=== PATIENT | male | born 1950 | race Caucasian/White ===

== ENCOUNTER 2020-03-11 18:56 | Inpatient (IN) | payer OTHER, MEDICARE ==
--- OUTSIDE RECORDS SUMMARY | 2020-03-11 18:58 | XMS REPORT | Continuity of Care Document ---
:1950 Author Organization [facility] t Address [address] [place] [address] Care Team Providers Name Role Phone Dagmar Turner Attending Clinician Guillaume Rosario MD Attending Clinician Doctor Unassigned, Name Attending Clinician Unavailable Problems Condition Condition Condition Status Onset Resolution Last Treating Co mments Source Name Details Category Date Date Treatment Clinician Date History of History of Problem Active [facility] cerebrovas cerebrovas Kate kes - cular cular [facility] Terminal Terminal [facility] Pharyngeal Pharyngeal Problem Active [facility] dysphagia dysphagia [facility] Schizophre Schizophre Problem Active [facility] melo melo [facility] Overactive Overactive Diagnosis Active [facility] bladder bladder [facility] Hyperlipid Hyperlipid Diagnosis Active [facility] emia emia [facility] Mild Mild Problem Active [facility] mental mental [facility] retardatio retardatio Me moria n n l [facility] Pain in Pain in Problem Active [facility] thoracic thoracic [facility] Other Other Problem Active [facility] chronic chronic [facility] pain [facility] Bipolar Bipolar Problem Active [facility] affective, affective, Kate kes - mixed mixed [facility] At risk At risk Problem Active [facility] for falls for falls [facility] Screening Screening Diagnosis Active [facility] for for [facility] prostate prostate [facility] a cancer cancer l [facility]pat[facility] ent Clin[facility] BMI BMI Diagnosis Active [facility] 30.0-30.9, 30.0-30.9, Kate kes - adult adult Memoria l [facility] ent Clinics History of History of Problem Active [facility] chronic chronic [facility] - urinary urinary [facility] tract tract l infection infection Outp at ent Clinics Fever, Fever, Diagnosis Active [facility] unspecifie unspecifie Kate kes - d fever d fever Memoria cause cause l [facility] ent [facility] Allergies, Adverse Reactions, Alerts This patient has no known allergies or adverse reactions. Medications Ordered Filled Start Stop Current Ordering Indication Dosage Frequency Signature Comments Components Source Medication Medication Date Date Medication? Clinician (SIG) Name Name Perphenazin Perphenazin Yes Trupti [place] [address] [facility] [address] [facility] Cefdinir Cefdinir Yes Truptiawais Gomez as [facility] directed [facility] Fesoterodin Fesoterodin Yes [place]rupt[place] [address] e Fumarate e Fumarate [place] - ER ER [facility] l [facility]ics Benadryl Benadryl Yes Trupti [place] 12.5mg. [facility] Restasis Restasis Yes [place]rupti [place] [address] - affected [facility] eye l [facility] Plavix Plavix Yes [place]rupt[place] [address] [facility] Tamsulosin Tamsulosin Yes [place]rupt[place] [address] [facility] HCl HCl [facility] Sulfamethox Sulfamethox Yes Trupti [place] I TABLET [facility] azole-TMP azole-TMP [facility] - DS DS [facility] l [facility] Ultram Ultram Yes [place] [address] as needed [facility] Zocor Zocor Yes Trupti [place] TAKE 1 [facility] TABLET BY [facility] - MOUTH Memoria EVERY DAY l [facility] Gabapentin Gabapentin Yes [place] [address] [facility] Olopatadine Olopatadine Yes Trupti [place] [address] [facility] HCl HCl [facility] Procedures This patient has no known procedures. Encounters Start End Encounter Admission Attending Care Care Encounter Source Date/Time Date/Time Type Type Clinicians Facility Department ID 2020-03-06 2020-03-06 Emergency [facility] [id number] 10:10:00 13:53:00 [place] [id number] [place] [id number] [place] [id number] 2019-12-07 2019-12-07 Telephone [facility] [id number] 00:00:00 00:00:00 [facility] [id number] [place] [id number] Professio [phone] [place] [address] [address] [facility] 2019-11-08 2019-11-08 Telephone [facility] [id number] 00:00:00 00:00:00 [place] [id number] [place] [id number] Professio [phone] [address] 2019-11-08 2019-11-08 Orders Doctor SAPPHIRE [id number] 00:00:00 00:00:00 Only Unassigned, BARBARA [id number] [facility] [id number] 2019-10-21 2019-10-21 Orders Doctor SAPPHIRE [id number] 00:00:00 00:00:00 Only Unassigned, BARBARA [id number] [facility] [id number] 2019-10-20 2019-10-20 Telephone [facility] [id number] 00:00:00 00:00:00 [place] [id number] [place] [id number] Professio [phone] [address] 2019-10-15 2019-10-15 Telephone [facility] [id number] 00:00:00 00:00:00 [place] [id number] [place] [id number] Professio [phone] [address] 2018-06-12 2018-06-12 Outpatient [facility] [id number] [facility] [address] 13:44:00 13:44:00 [facility] 2018-06-09 2018-06-09 [place] [id number] [facility] 11:00:00 11:00:00 [facility] 2017-11-11 2017-11-11 [facility] [place] [facility] [id number] [address] 13:50:00 13:50:00 [facility] 2017-11-06 2017-11-06 Outpatient [facility]ima [facility] [id number] 10:30:00 10:30:00 [facility] Results This patient has no known results.
--- OUTSIDE RECORDS SUMMARY | 2020-03-11 18:58 | XMS REPORT | Summary of Care ---
:1950 Author Organization [facility] - [facility] Address [address] [place] [id number] Care Team Providers Name Role Phone Bogdan Rosario MD Primary Care Provider Reason for Referral MRI/CAT Scan (STAT) Status Reason Specialty Diagnoses / Referred By Referred To Procedures Contact Contact New Request Diagnostic Diagnoses Gross hematuria Generalized abdominal pain Fall, initial encounter Acute pain of left knee Adonis Roy, Radiology Procedures CT ABDOMEN PELVIS W CONTRAST GLOST PLACER [address] [place] [phone] Radiology Services (STAT) Status Reason Specialty Diagnoses / Referred By Referred To Procedures Contact Contact New Request Diagnostic Diagnoses Gross hematuria Generalized abdominal pain Fall, initial encounter Acute pain of left knee Adonis Roy, Radiology Procedures Chest 1 View GLOST PLACER [address] [place] [phone] Reason for Visit Reason Comments Hematuria Auth/Cert Status Reason Specialty Diagnoses / Referred By Referred To Procedures Contact Contact Emergency Medicine [facility] [address] [place] [address] Fax: Encounter Details Date Type Department Care Team Description 03/06/2020 Emergency [facility]-Emergency Adonis Roy , GLOST PLACER Gross hematuria (Primary Dx); Department [address] [place] [address] Generalized abdominal pain; [address] [place] [address] Fall, ini tial encounter; Drive [phone] Acute pain of left knee; [place] [address] Pneumonia of right lower lobe due to inf ectious organism [phone] Allergies No Known Allergiesdocumented as of this encounter (statuses as of 03/06/2020) Medications Medication Sig Dispensed Refills Start Date End Date Status clopidogrel (PLAVIX) 75 mg Take 75 mg by 0 Active tablet mouth daily. gabapentin ER 300 mg Take 300 mg 0 Active tablet, extended release by mouth 24 hr daily. perphenazine (TRILAFON) 4 Take 4 mg by 0 Active mg tablet mouth 3 (three) times daily. tamsulosin 0.4 mg 24 hr Take 0.4 mg 0 Active capsule by mouth daily. sulfamethoxazole-trimethop 1 tablet po 0 Active rim 800-160 mg per tablet daily (PER UROLOGY) Olopatadine 0.2 % PRN 0 Ac tive ophthalmic drops TOVIAZ 8 mg tablet Take 1 tablet 3 07/24/2018 Active by mouth daily. diphenhydrAMINE 50 mg Take 50 mg by 0 Active capsule mouth at bedtime. multivit-min/FA/lycopen/juni Take 1 tablet 0 Active tein (CENTRUM SILVER MEN by mouth ORAL) daily. BIOTENE DRY MOUTH ORAL Apply as 0 Active RINSE MUCOUS MEMBR directed. Lactobacillus acidophilus Take by 0 Active (PROBIOTIC ORAL) mouth. coenzyme Q10 (COQ-10) 100 Take 1 30 capsule 5 04/16/2019 Active mg softgelIndications: capsule by Muscle pain mouth daily. ROSUVASTATIN 5 mg TAKE 1 TABLET 90 tablet 2 06/16/2019 Active tabletIndications: BY MOUTH AT Hypercholesterolemia BEDTIME. STOP SIMVASTATIN. doxycycline 100 mg EC Take 1 tablet 14 tablet 0 03/06/2020 Active tabletIndications: by mouth 2 0 Pneumonia of right lower (two) times lobe due to infectious daily for 7 organism days. documented as of this encounter (statuses as of 03/06/2020) Active Problems Problem Noted Date Prediabetes 06/09/2019 Mental retardation 10/05/2018 History of recurrent UTIs 10/05/2018 Hyperlipidemia Hearing loss Overactive bladder documented as of this encounter (statuses as of 03/06/2020) Resolved Problems Problem Noted Date Resolved Date Abdominal pain 05/07/2019 06/09/2019 UTI (urinary tract infection) 10/29/2017 10/05/2018 documented as of this encounter (statuses as of 03/06/2020) Immunizations Name Administration Dates Next Due Pneumococcal 13 Conjugate, PCV13 (Prevnar 13) 10/19/2018 documented as of this encounter Social History Tobacco Use Types Packs/Day Years Used Date Never Smoker Smokeless Tobacco: Never Used Alcohol Use Drinks/Week oz/Week Comments Yes 14 Cans of beer 14.0 2 beers per day Sex Assigned at Date Recorded Not on file COVID-19 Exposure Response Date Recorded In the last month, have you been in contact with No / Unsure 03/06/2020 10:12 AM TOOL PROCUREMENT COORDINATOR someone who was confirmed or suspected to have Coronavirus / COVID-19? documented as of this encounter Last Filed Vital Signs Vital Sign Reading Time Taken Comments Blood Pressure 137/69 03/06/2020 1:00 PM TOOL PROCUREMENT COORDINATOR Pulse 86 03/06/2020 1:00 PM TOOL PROCUREMENT COORDINATOR Temperature 37.4 C (99.3 F) 03/06/2020 10:17 AM TOOL PROCUREMENT COORDINATOR Respiratory Rate 20 03/06/2020 1:00 PM TOOL PROCUREMENT COORDINATOR Oxygen Saturation 100% 03/06/2020 1:00 PM TOOL PROCUREMENT COORDINATOR Inhaled Oxygen Concentration - - Weight 81.6 kg (180 lb) 03/06/2020 10:17 AM TOOL PROCUREMENT COORDINATOR Height - - Body Mass Index 29.05 09/30/2019 10:49 AM CDT documented in this encounter Discharge Instructions AttachmentsThe following attachments cannot be sent through Care Everywhere. Anatomy, Lung (Wallisian)Pneumonia, Treating (Wallisian)Hematuria (Wallisian) Hematuria: Possible Causes (Wallisian)Falls, Preventing, Are You At Risk of Falling? (Wallisian)Falls, Preventing, Moving Safely Out of a Chair and Bed (Wallisian)documented in this encounter ED Notes Ann Patterson RN - 03/06/2020 10:12 AM CSTPatient arrived accompanied by sister/POA due to patient's MR status.. Patient had a slip and fall in the shower on Friday with pain to the left knee, leg, and abdomen. This morning patient is reporting burning and pain to his penis with hematuria accompanied by abdominal pain. Patient is requesting to make note that due to the fact that he is a jehovah witness he would not want a blood transfusion documented in this encounter Miscellaneous Notes ED Nurse Note - Janine Alonzo RN - 03/06/2020 1:51 PM CSTPt given printed and verbal discharge instructions regarding Hematuria, Generalized abdominal pain, Fall, Acute knee pain, Pneumonia of right lower lobe due to infectious organism. encouraged hydration, Prescriptions provided Doxycycline Discussed ibuprofen and to take with food to avoid GI distress. Discussed antibiotic therapy and to take until all completed unless adverse reaction occurs - if occurs, discontinue medication and follow up with pcp/seek medical attention Pt verbalized understanding of instructions, pt awake alert oriented, resp reg unlabored, skin w/d, color appropriate for race, moves all ext well,pt encouraged to follow up with pcp and urology in three days. Advised to seek medical attention for new/prolonged/worsening of symptoms, Symptoms increase bleeding, or any signs of infection, fever over 100.4 No adverse reaction to meds given in ER noted upon discharge PIV d'cd, dressing to site, catheter in tact. Awake, alert oriented, resp reg unlabored, skin w/d, pt leaving amb with steady gait, in no apparent distress, PROCUREMENT COORDINATOR documented in this encounter Plan of Treatment Health Maintenance Due Date Last Done Comments DTaP,Tdap,and Td Vaccines (1 - Tdap) 1967 COLON CANCER SCREENING ANNUAL FIT/FOBT 1998 COLON CANCER SCREENING FIT DNA EVERY 3 YEARS 1998 COLON CANCER SCREENING SIGMOIDOSCOPY EVERY 5 YEARS 1998 Zoster Recombinant Vaccine (SHINGRIX) (1 of 2) 1998 Medicare Wellness Visit 10/20/2019 10/19/2018 PNEUMOCOCCAL VACCINES 65+ (2 of 2 - PPSV23) 10/20/201910/05 INFLUENZA VACCINE (#1) 2019 Depression Screening 05/25/2020 05/25/2019 COLONOSCOPY 04/07/2026 04/07/2016 Colorectal Cancer Screening 04/07/2026 HEPATITIS C (HCV) SCREEN Completed 11/16/2018 documented as of this encounter Procedures Procedure Name Priority Date/Time Associated Comments Diagnosis CT ABDOMEN PELVIS W STAT 03/06/2020 11:53 Gross hemat uria Results for this CONTRAST AM TOOL PROCUREMENT COORDINATOR Generalized procedure are i n abdominal pain the results Fall, initial section. encounter Acute pain of left knee URINALYSIS STAT 03/06/2020 11:33 Gross hematuria Results for this AM TOOL PROCUREMENT COORDINATOR Generalized procedure are i n abdominal pain the results Fall, initial section. encounter Acute pain of left knee XR CHEST 1 VW STAT 03/06/2020 10:56 Gross hematuria Results for this AM TOOL PROCUREMENT COORDINATOR Generalized procedure are i n abdominal pain the results Fall, initial section. encounter Acute pain of left knee HB ECG ROUTINE & STAT 03/06/2020 10:47 Gross hematuri a RHYTHM STRIP AM TOOL PROCUREMENT COORDINATOR Generalized abdominal pain Fall, initial encounter Acute pain of left knee ACTIVATED PARTIAL STAT 03/06/2020 10:35 Gross hematur ia Results for this THRMPLAS CARMELITA AM TOOL PROCUREMENT COORDINATOR Generalized procedure are i n abdominal pain the results Fall, initial section. encounter Acute pain of left knee PROTHROMBIN TIME / STAT 03/06/2020 10:35 Gross hematu swati Results for this INR AM TOOL PROCUREMENT COORDINATOR Generalized procedure are i n abdominal pain the results Fall, initial section. encounter Acute pain of left knee CBC WITH DIFF STAT 03/06/2020 10:35 Gross hematuria Results for this AM TOOL PROCUREMENT COORDINATOR Generalized procedure are i n abdominal pain the results Fall, initial section. encounter Acute pain of left knee BASIC METABOLIC PANEL STAT 03/06/2020 10:35 Gross hem aturia Results for this (NA, K, CL, CO2, AM TOOL PROCUREMENT COORDINATOR Generalized procedure a re in GLUCOSE, BUN, abdominal pain the results CREATININE, CA) Fall, initial section. encounter Acute pain of left knee HEPATIC FUNCTION STAT 03/06/2020 10:35 Gross hematuri a Results for this PANEL (62010) AM TOOL PROCUREMENT COORDINATOR Generalized procedure are in (ALB,T.PRO,BILI abdominal pain the results T,BU/BC,ALT,AST,ALK Fall, initial section . PHOS) encounter Acute pain of left knee TROPONIN I STAT 03/06/2020 10:35 Gross hematuria Results for this AM TOOL PROCUREMENT COORDINATOR Generalized procedure are i n abdominal pain the results Fall, initial section. encounter Acute pain of left knee LIPASE STAT 03/06/2020 10:35 Gross hematuria Results for this AM TOOL PROCUREMENT COORDINATOR Generalized procedure are i n abdominal pain the results Fall, initial section. encounter Acute pain of left knee documented in this encounter Results CT ABDOMEN PELVIS W CONTRAST (03/06/2020 11:53 AM TOOL PROCUREMENT COORDINATOR) Specimen Impressions Performed At Lobulated hyperdensity within the posterior gastric fu ndus, could PACS/VR/DOSE represent active submucosal or mucosal bleeding if there is hist ory of hematemesis. Though no oral contrast was administered , differential would include ingested hyperdense material. No other acute traumatic injury within t he abdomen or pelvis. Stable mesenteric panniculitis. No fractures identified. Groundglass nodularity at the right lung base could re present atelectasis versus partially visualized pneumonia RL: 7000 Narrative Performed At Patient name: TITI LOTT JR. PACS/VR/DOSE : 1950 69 years EXAMINATION: [facility] Ordering Physician: ADONIS ROY CLINICAL HISTORY: Abd trauma, blunt, hematuria macroscopic COMPARISON: 05/07/2019 TECHNIQUE: Helical CT images of the abdomen and pel vis were performed from the lung bases to the proximal femurs using 5 mm slice thickness after the administration of IV contrast. Coronal a nd sagittal reconstruction was performed. Dose reduction technology was utilized.. FINDINGS: The liver is normal in size and morpholo gy without discrete lesions. No calcified gallstones. The spleen is norm al. No pancreatic lesions or inflammatory changes. The adrenal glands are normal. Both kidneys enhance symmetrically without discrete le sions. No stones or hydronephrosis. Urinary bladder is gross ly normal. Prostate is normal. No hiatal hernia or esophageal thickening. No discrete gastric thickening or surrounding inflammatory changes. There is hyperden sity layering along the posterior gastric fundus, not seen on prior exam. No oral contrast was administered. The large and small bowel are normal in caliber and wall thickness. The appendix is normal. No free fluid or abscess. There is stable stranding of the mesenteric root with clustered nonenlarged mesenteric ro ot lymph nodes. No adenopathy. Aorta is normal in caliber. No acute osseous abnormality. Degenerative changes of the spine and pelvis. No acute process in the subcutaneous sof t tissues. Groundglass nodularity in the subpleural right lung base. Procedure Note [facility], Radiant Results Inft User - 2019 12:53 PM TOOL PROCUREMENT COORDINATOR Patient name: TITI LOTT JR. : 1950 69 years EXAMINATION: CT ABDOMEN PELVIS W CONTRAS Ordering Physician: ADONIS ROY CLINICAL HISTORY: Abd trauma, blunt, hematuria macroscopic COMPARISON: 05/07/2019 TECHNIQUE: Helical CT images of the abdomen and pel vis were performed from the lung bases to the proximal femurs using 5 mm slice thickness after the administration of IV contrast. Coronal a nd sagittal reconstruction was performed. Dose reduction technology was utilized.. FINDINGS: The liver is normal in size and morpholo gy without discrete lesions. No calcified gallstones. The spleen is norm al. No pancreatic lesions or inflammatory changes. The adrenal glands are normal. Both kidneys enhance symmetrically witho ut discrete lesions. No stones or hydronephrosis. Urinary bladder is gross ly normal. Prostate is normal. No hiatal hernia or esophageal thickenin g. No discrete gastric thickening or surrounding inflammatory changes. The re is hyperdensity layering along the posterior gastric fundus, not seen o n prior exam. No oral contrast was administered. The large and small bowel are normal in caliber and wall thickness. The appendix is normal. No free fluid or abscess. There is stabl e stranding of the mesenteric root with clustered nonenlarged mesenteric ro ot lymph nodes. No adenopathy. Aorta is normal in caliber. No acute osseous abnormality. Degenerati ve changes of the spine and pelvis. No acute process in the subcutaneous sof t tissues. Groundglass nodularity in the subpleural right lung base. IMPRESSION Lobulated hyperdensity within the recreation officer ior gastric fundus, could represent active submucosal or mucosal bleeding if there is history of hematemesis. Though no oral contrast was administered , differential would include ingested hyperdense material. No other acute traumatic injury within t he abdomen or pelvis. Stable mesenteric panniculitis. No fractures identified. Groundglass nodularity at the right lung base could represent atelectasis versus partially visualized pneumonia RL: 7000 Performing Organization Address City/State/Zipcode Phone Number PACS/VR/DOSE Urinalysis (03/06/2020 11:33 AM TOOL PROCUREMENT COORDINATOR) Pathologist Sig nature APPEARANCE Hazy (A) Clear [facility] COLOR Yellow Yellow [facility] PH 6.0 4.8 - 8.0 [facility] SP GRAVITY 1.017 1.003 - 1.030 [facility] GLU U QUAL 50 mg/dL (A) Normal [facility] BLOOD 3+ (A) Negative [facility] KETONES Negative Negative [facility] PROTEIN Negative Negative [facility] UROBILIN 2.0 mg/dL (A) Normal [facility] BILIRUBIN Negative Negative [facility] NITRITE Negative Negative [facility] LEUK ELENI Negative Negative [facility] RBC/HPF >182 (H) 0 - 3 HPF [facility] WBC/HPF 4 0 - 5 HPF [facility] BACTERIA Negative Negative [facility] MUCOUS Slight (A) Negative LPF [facility] AMORPHOUS Rare Rare HPF [facility] SQ EPITH <1 HPF [facility] Specimen Urine - URINE, CLEAN CATCH Performing Organization Address City/[facility]/Zipcode Phone Number [facility] CLIA: [id number] [place] [address] Chest 1 View (03/06/2020 10:56 AM TOOL PROCUREMENT COORDINATOR) Specimen Narrative Performed At CHEST PORTABLE ONE VIEW PACS/VR/DOSE HISTORY:Fall TECHNIQUE: Frontal, portable projection of the chest is obtained. COMPARISON: 10/29/2017 FINDINGS: Slight prominence of the pulmo nary vascularity is noted. Heart size is enlarged. No pleural effusion or pneumothorax is s een. No definite displaced rib fracture is seen. Changes of degenerative joint disease are seen in the shoulder joints. Changes of sp ondylosis are seen in the thoracic spine. CONCLUSIONS: 1. Cardiomegaly and mild pulmonary venous congestion Procedure Note [facility], Radiant Results Inft User - 2019 11:00 AM TOOL PROCUREMENT COORDINATOR CHEST PORTABLE ONE VIEW HISTORY:Fall TECHNIQUE: Frontal, portable projection of the chest is obtained. COMPARISON: 10/29/2017 FINDINGS: Slight prominence of the pulmo nary vascularity is noted. Heart size is enlarged. No pleural effusion or pneumothorax is s een. No definite displaced rib fracture is se en. Changes of degenerative joint disease are seen in the shoulder joints. Changes of spondylosis are seen in the thoracic spine. CONCLUSIONS: 1. Cardiomegaly and mild pulmonary venou s congestion Performing Organization Address City/State/Zipcode Phone Number PACS/VR/DOSE Troponin I (03/06/2020 10:35 AM TOOL PROCUREMENT COORDINATOR) Pathologist Sig nature TROPONIN I 0.051 (H) <=0.034 ng/mL [facility] Specimen Blood - ARM, LEFT Narrative Performed At Equal or Less than 0.034 ng/ml---Normal [facility] Note: Cardiac troponin begins to rise 3-4 hours after the onset of ischemia. Repeat in 4-6 hours if the sample was drawn within 3-4 hours of the onset of the symptom and found normal. Between 0.035 and 0.120 ng/mL--- Borderline. Questionable myocardial injury or necros is Note: Serial measurement may be necessary to confirm or exclude the diagnosis of myocardial injury or necrosis; Clinical correlation (symptoms, EKGs, imaging studies, and others) required; Repeat in 4-6 hours if clinically indicated. Equal or Higher than 0.121 ng/mL---Abnormal. Myocardial Injury or Necrosis Likely Biotin has been reported to cause a negative bias, interpret results relative to patient's use of biotin. Performing Organization Address [facility] Phone Number [facility] CLIA: [id number] [place], [place] [id number] LABORAT[address] Prothrombin Time (PT) / INR (03/06/2020 10:35 AM TOOL PROCUREMENT COORDINATOR) PROTIME PATIENT 13.7 12.0 - 14.7 [facility] LABORATORY INR 1.1Comment: Normal [facility] INR <1.1; Warfarin [facility] Therapeutic range LABORATORY 2.0 to 3.0 or 2.5 to 3.5, depending upon the indications. Specimen Blood - ARM, LEFT Performing Organization Address [facility] Phone Number [facility] CLIA: [id number] [place] [address] aPTT (03/06/2020 10:35 AM TOOL PROCUREMENT COORDINATOR) Pathologist Sig nature APTT Patient 31 23 - 38 Seconds [facility] Specimen Blood - ARM, LEFT Narrative Performed At The [facility] patient population mean normal value [facility] for aPTT is 30 seconds. Performing Organization Address [facility] Phone Number [facility] CLIA: [id number] [place] [address] Lipase Serum (03/06/2020 10:35 AM TOOL PROCUREMENT COORDINATOR) Pathologist Sig nature LIPASE 189 0 - 220 U/L [facility] Specimen Blood - ARM, LEFT Performing Organization Address [facility] Phone Number [facility] CLIA: [id number] [place] [address] [place] [address] Hepatic Function Panel (ALB, T.PRO, BILI T, BU/BC, ALT, AST, ALK PHOS) (03/06/2020 10:35 AM TOOL PROCUREMENT COORDINATOR) Pathologist Sig nature TOTAL BILI 0.9 0.1 - 1.1 mg/dL [facility] BILI UNCON 0.7 0.1 - 1.1 mg/dL [facility] BILI CONJ 0.0 0.0 - 0.3 mg/dL [facility] T PROTEIN 6.2 (L) 6.3 - 8.2 g/dL [facility] ALBUMIN 3.8 3.5 - 5.0 g/dL [facility] ALK PHOS 72 34 - 122 U/L [facility] ALTv 55 (H) 5 - 50 U/L [facility] AST(SGOT) 124 (H) 13 - 40 U/L [facility] Specimen Blood - ARM, LEFT Performing Organization Address [facility] Phone Number [facility] CLIA: [id number] [place] [address] [place] [address] Basic Metabolic Panel (NA, K, CL, CO2, GLUCOSE, BUN, CREATININE, CA) (03/06/2020 10:35 AM TOOL PROCUREMENT COORDINATOR) NA 137 135 - 145 [facility] mmol/L [facility] K 3.3 (L) 3.5 - 5.0 [facility] mmol/L [facility] CL 100 98 - 108 mmol/L [facility] CO2 TOTAL 30 23 - 31 mmol/L [facility] AGAP 7 2 - 16 [facility] BUN 24 (H) 7 - 23 mg/dL [facility] GLUCOSE 187 (H) 70 - 110 mg/dL [facility] CREATININE 1.27 (H) 0.60 - 1.25 [facility] mg/dL [facility] CALCIUM 8.8 8.6 - 10.6 [facility] mg/dL [facility] eGFR Calculation 55.9 mL/min/1.73m2 [facility] ([facility] LABORATORY [place]) eGFR Calculation 67.8 mL/min/1.73m2 [facility] () [facility] Specimen Blood - ARM, LEFT Narrative Performed At Association of Glomerular Filtration Rate (GFR) [facility] and Staging of Kidney Disease* + + +- + | GFR (mL/min/1.73 m2) | With Kidney Damage | Without Kidney Damage + + +- + | >90 | Stage one | Normal + + +- + | 60-89 | Stage two | Decreased GFR + + +- + | 30-59 | Stage three | Stage three + + +- + | 15-29 | Stage four | Stage four + + +- + | <15 (or dialysis) | Stage five | Stage five + + +- + *Each stage assumes the associated GFR level has been in effect for at least three months. Stages 1 to 5, with or without kidney disease, indicate chronic kidney disease. Notes: Determination of stages one and two (with eGFR >59mL/min/1.73 m2) requires estimation of kidney damage for at least three months as defined by structural or functional abnormalities of the kidney, manifested by either: Pathological abnormalities or Markers of kidney damage (including abnormalities in the composition of the blood or urine or abnormalities in imaging tests). Performing Organization Address City/State/Zipcode Phone Number [facility] CLIA: [id number] [place] [address] CBC with Differential (03/06/2020 10:35 AM TOOL PROCUREMENT COORDINATOR) Pathologist Sig nature WBC 4.24 4.20 - 10.70 [facility] 10*3/L [facility] RBC 4.45 4.26 - 5.52 [facility] 10*6/L [facility] HGB 14.4 12.2 - 16.4 [facility] g/dL [facility] HCT 41.4 38.4 - 49.3 % [facility] MCV 93.0 81.7 - 95.6 fL [facility] MCH 32.4 26.1 - 32.7 pg [facility] MCHC 34.8 31.2 - 35.0 [facility] g/dL [facility] RDW-SD 42.5 38.5 - 51.6 fL [facility] RDW-CV 12.3 12.1 - 15.4 % [facility] PLT 133 (L) 150 - 328 [facility] 10*3/L [facility]OSPITAL [facility] MPV 9.5 (L) 9.8 - 13.0 fL [facility] NRBC/100 WBC 0.0 0.0 - 10.0 /100 [facility] WBCs [facility] NRBC x10^3 <0.01 10*3/L [facility] GRAN MAT (NEUT) % 68.9 % [facility] IMM GRAN % 0.20 % [facility] LYMPH % 21.7 % [facility] MONO % 9.0 % [facility] EOS % 0.0 % [facility] BASO % 0.2 % [facility] GRAN MAT x10^3(ANC) 2.92 1.99 - 6.95 [facility] 10*3/uL [facility] IMM GRAN x10^3 <0.03 0.00 - 0.06 [facility] 103/uL [facility] LYMPH x10^3 0.92 (L) 1.09 - 3.23 [facility] 10*3/uL [facility] MONO x10^3 0.38 0.36 - 1.02 [facility] 10*3/uL [facility] EOS x10^3 <0.03 (L) 0.06 - 0.53 [facility] 10*3/uL [facility] BASO x10^3 <0.03 0.01 - 0.[address]/[facility] LABORATORY Specimen Blood - ARM, LEFT Performing Organization Address City/State/Zipcode Phone Number [facility] CLIA: [id number] [place] [address] documented in this encounter Visit Diagnoses Diagnosis Gross hematuria - Primary Generalized abdominal pain Abdominal pain, generalized Fall, initial encounter Acute pain of left knee Pneumonia of right lower lobe due to inf ectious organism documented in this encounter Administered Medications Medication Order MAR Action Action Date Dose Rate Site iohexol (OMNIPAQUE 350 BULK-150 Given 03/06/2020 11:48 AM TOOL PROCUREMENT COORDINATOR 12 0 mL mL) injection 120 mL 120 mL, Intravenous, ONCE, 1 dose, 03/06/20 at 1200, Routine documented in this encounter Insurance Payer Benefit Plan / Subscriber ID Effective Phone Address T ype Group Dates MEDICARE MEDICARE PART [id number] 2003-Pre [phone] [address] edicare A & B sent [phone] CRYSTAL NEGRON [phone] [facility] [id number] 2013-Pre [address] [facility] HEALTHCARE sent [id number] Supplement MEDICARE [place] SUPPLEMENT CRYSTAL GONZALEZ [id number] [facility] [id number] 2019-Pre [place] dicaid HEALTHCARE PLUS sent COMM PLAN - MANAGED MEDICAID documented as of this encounter"
[2020-03-11 19:20] LABS: Absolute Lymphocytes (CBC) 0.5 K/uL (0.7-4.9); Basophils % 0.2 % (0-1.3); Hematocrit 41.9 % (39.6-49.0); Lymphocytes % 8.5 % (15.3-44.8); MPV 8.6 fL (7.6-11.3); RBC Red Blood Cell Count 4.52 M/uL (4.33-5.43)
[2020-03-11 19:24] LABS: Protime INR 1.09
[2020-03-11 19:45] LABS: Blood O2 Saturation 86.5 % (92-98.5)
[2020-03-11 19:56] LABS: Albumin 2.6 g/dL (3.4-5.0); Bilirubin Direct 0.2 mg/dL (0-0.2); Bilirubin Total 0.5 mg/dL (0.2-1.0); Protein, Total 6.4 g/dL (6.4-8.2); Troponin (Emerg Dept Use Only) 0.14 ng/mL (0.0-0.045)
[2020-03-11 19:58] LABS: Potassium 3.7 mmol/L (3.5-5.1)
--- NOTE | 2020-03-11 20:07 | RAD REPORT ---
EXAM DESCRIPTION: Carmen Single View03/11/2020 7:33 pm CLINICAL HISTORY: Chest pain COMPARISON: none FINDINGS: Mild to moderate bilateral patchy lung opacities. The heart is mildly enlarged IMPRESSION: Mild to moderate patchy bilateral lung opacities may indicate pneumonia
[2020-03-11 20:12] LABS: White Blood Cell Scan OK (OK)
[2020-03-11 20:13] LABS: Blood Morphology Comment NOT SEEN (NOT SEEN); Platelet Estimate ADEQ
--- NOTE | 2020-03-11 20:33 | EDPHYS ---
Physician Documentation [facility] Name: Titi Champagne Jr Age: 69 yrs Sex: Male : 1950 Arrival Date: 03/11/2020 Time: 18:59 Bed 19 Private MD: ED Physician Demetrius English HPI: 03/11 20:21 This 69 yrs old Male presents to ER via EMS with complaints of Shortness Of tw4 Breath. 20:21 The patient has shortness of breath at rest. Onset: The symptoms/episode began/occurred tw4 today. Duration: The symptoms are continuous, and are unchanged since they started. The patient's shortness of breath has no apparent modifying factors. Associated signs and symptoms: The patient has no apparent associated signs or symptoms. Severity of symptoms: At their worst the symptoms were moderate in the emergency department the symptoms are unchanged. The patient has not experienced similar symptoms in the past. Historical: - Allergies: 19:50 No Known Allergies; lp1 - Home Meds: 22:59 gabapentin 300 mg oral cap 1 cap at bedtime [Active]; CoQ-10 100 mg oral cap pm rr5 [Active]; triamterene-hydrochlorothiazid 37.5-25 mg Oral cap 1 cap once daily [Active]; tamsulosin 0.4 mg oral cp24 1 cap once daily [Active]; sulfamethoxazole-trimethoprim Oral 1 tab once daily [Active]; clopidogrel 75 mg oral tab 1 tab once daily [Active]; Toviaz 8 mg oral Tb24 1 tab once daily [Active]; perphenazine 4 mg oral tab 1 tab at bedtime [Active]; Centrum Silver oral oral daily [Active]; rosuvastatin 5 mg oral tab 1 tab at HS [Active]; Sleep Aid (diphenhydramine) 50 mg oral cap 1 cap once daily [Active]; - 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 - Social history:: Smoking status: Patient denies any tobacco usage or history of. ROS: 20:21 Constitutional: Negative for fever, chills, and weight loss, Eyes: Negative for injury, tw4 pain, redness, and discharge, Cardiovascular: Negative for chest pain, palpitations, and edema, Abdomen/GI: Negative for abdominal pain, nausea, vomiting, diarrhea, and constipation, Back: Negative for injury and pain, MS/Extremity: Negative for injury and deformity, Skin: Negative for injury, rash, and discoloration, Neuro: Negative for headache, weakness, numbness, tingling, and seizure. 20:21 Respiratory: Positive for cough, shortness of breath, Negative for dyspnea on exertion, hemoptysis, orthopnea, pleurisy. Exam: 20:21 Constitutional: This is a well developed, well nourished patient who is awake, alert, tw4 and in no acute distress. Head/Face: Normocephalic, atraumatic. Chest/axilla: Normal chest wall appearance and motion. Nontender with no deformity. No lesions are appreciated. Cardiovascular: Regular rate and rhythm with a normal S1 and S2. No gallops, murmurs, or rubs. Normal PMI, no JVD. No pulse deficits. Respiratory: Lungs have equal breath sounds bilaterally, clear to auscultation and percussion. No rales, rhonchi or wheezes noted. No increased work of breathing, no retractions or nasal flaring. Abdomen/GI: Soft, non-tender, with normal bowel sounds. No distension or tympany. No guarding or rebound. No evidence of tenderness throughout. Back: No spinal tenderness. No costovertebral tenderness. Full range of motion. MS/ Extremity: Pulses equal, no cyanosis. Neurovascular intact. Full, normal range of motion. Neuro: Awake and alert, GCS 15, oriented to person, place, time, and situation. Cranial nerves II-XII grossly intact. Motor strength 5/5 in all extremities. Sensory grossly intact. Cerebellar exam normal. Normal gait. Vital Signs: 18:59 BP 145 / 60; Pulse 105; Resp 40; Temp 100.1; Pulse Ox 83% on 6 lpm NC; sv 19:50 BP 146 / 69; Pulse 104; Resp 22; Temp 99.3(O); Pulse Ox 90% on 5 lpm NC; lp1 20:30 BP 129 / 73; Pulse 102; Resp 21; Pulse Ox 90% on 5 lpm NC; lp1 21:00 BP 130 / 71; Pulse 105; Resp 24; Pulse Ox 90% on 5 lpm NC; lp1 22:10 BP 146 / 85; Pulse 111; Resp 30; Temp 98.4; Pulse Ox 86% on 5 lpm NC; rr5 23:10 BP 141 / 80; Pulse 116; Resp 33; Pulse Ox 90% ; rr5 23:11 Weight 81.65 kg; Height 5 ft. 5 in. (165.10 cm); rr5 23:11 Body Mass Index 29.95 (81.65 kg, 165.10 cm) rr5 18:59 Pt placed on 100% NRB. O2 sat up to 98%. sv 22:10 changed to non rebreather mask at 15 liter/min rr5 23:10 30%/75% oxygen high flow rr5 MDM: 19:06 Patient medically screened. tw4 20:21 Differential diagnosis: Anemia Anxiety Reaction CHF exacerbation, pneumonia, tw4 Pneumothorax pulmonary edema, Pulmonary Embolism reactive airway disease. Data reviewed: vital signs, nurses notes. Data interpreted: Pulse oximetry: Interpretation: normal. Counseling: I had a detailed discussion with the patient and/or guardian regarding: the historical points, exam findings, and any diagnostic results supporting the discharge/admit diagnosis. 21:48 Data reviewed: lab test result(s), CBC, electrolytes, radiologic studies, plain films. tw4 Data reviewed: EKG. Test interpretation: by ED physician or midlevel provider: ECG, plain radiologic studies. Physician consultation: Jonathan Barth MD regarding admission, to the telemetry unit. patient's condition, and will see patient in ED. 03/11 19:02 Order name: ABG rn 03/11 19:02 Order name: Basic Metabolic Panel; Complete Time: 20:10 rn 03/11 20:10 Interpretation: Normal except: GLUC 131; BUN 25; CRE 1.41; GFR 50. tw4 03/11 19:02 Order name: Blood Culture Adult (2) rn 03/11 19:02 Order name: CBC with Diff rn 03/11 20:10 Interpretation: Normal except: MCV 92.7; LYM% 8.5; KANE% 87.6. tw4 03/11 19:02 Order name: CPK; Complete Time: 20:10 rn 03/11 20:10 Interpretation: Normal except: CPK 609. tw4 03/11 19:02 Order name: Lactate; Complete Time: 20:10 rn 12/05 20:10 Interpretation: Normal except: LAC 3.3. [facility] 03/11 19:02 Order name: LFT's; Complete Time: 20:10 rn 03/11 20:10 Interpretation: AST 120; ALB 2.6; GLOB 3.8; A/G 0.7. [facility] 03/11 19:02 Order name: Procalcitonin; Complete Time: 20:10 rn 03/11 20:11 Interpretation: Within normal limits: Procalcitonin 0.17. [facility] 03/11 19:02 Order name: Protime (+inr); Complete Time: 20:10 rn 03/11 20:11 Interpretation: Normal except: PT 12.8. [facility] 03/11 19:02 Order name: Ptt, Activated; Complete Time: 20:10 rn 03/11 20:11 Interpretation: Within normal limits: PTT 29.9. [facility] 03/11 19:02 Order name: Troponin (emerg Dept Use Only); Complete Time: 20:10 03/11 20:11 Interpretation: Abnormal: TROPED 0.14. [facility] 03/11 20:12 Order name: COVID-19 [facility] 03/11 20:12 Order name: Flu [facility] 03/11 20:12 Order name: Strep [facility] 03/11 20:13 Order name: Influenza Screen (A EDRI 03/11 20:13 Order name: Group A Streptococcus Rapid Sc EDMS 03/11 20:13 Order name: CBC Smear Scan EDMS 03/11 21:49 Order name: Comprehensive Metabolic Panel EDMS 03/11 21:49 Order name: CBC with Automated Diff EDMS 03/11 21:49 Order name: CBC with Automated Diff EDMS 03/11 21:50 Order name: C-Reactive Protein EDMS 03/11 21:51 Order name: C-Reactive Protein EDMS 03/11 21:51 Order name: C-Reactive Protein EDMS 03/11 21:51 Order name: C-Reactive Protein EDMS 03/11 21:56 Order name: Throat Culture EDMS 03/11 22:16 Order name: SARS-COV-2 RT PCR EDMS 03/11 23:08 Order name: Lactate Sepsis 2 HR Follow-up EDMS 03/13 04:04 Order name: CBC with Automated Diff EDMS 03/13 04:04 Order name: Lactate EDMS 03/11 19:02 Order name: Chest Single View XRAY; Complete Time: 20:10 rn 03/11 19:02 Order name: Accucheck; Complete Time: 19:50 rn 03/11 19:02 Order name: Cardiac monitoring; Complete Time: 19:27 rn 03/11 19:02 Order name: EKG - Nurse/Tech; Complete Time: 19:28 rn 03/11 19:02 Order name: IV Saline Lock - Large Bore; Complete Time: 19:27 rn 03/11 19:02 Order name: Labs collected and sent; Complete Time: 19:27 rn 03/11 19:02 Order name: O2 Per Protocol; Complete Time: 19:27 rn 03/11 19:02 Order name: O2 Sat Monitoring; Complete Time: 19:27 rn 03/11 20:12 Order name: Document PUI#; Complete Time: 20:54 tw4 03/11 20:12 Order name: Droplet/Contact Precautions; Complete Time: 20:54 tw4 03/11 20:12 Order name: Notify Health Dept [phone]/ ; Complete Time: 20:54 tw4 03/11 21:49 Order name: Regular EDMS 03/13 04:14 Order name: Comprehensive Metabolic Panel EDMS 03/13 04:14 Order name: Phosphorus EDMS 03/13 04:14 Order name: Troponin I EDMS 03/13 04:14 Order name: NT PRO-BNP EDMS 03/13 04:14 Order name: Magnesium EDMS 03/13 04:17 Order name: Liver (Hepatic) Function EDMS 03/13 04:17 Order name: Creatinine EDMS 03/13 04:55 Order name: Manual Differential EDMS 03/13 05:07 Order name: Procalcitonin EDMS 03/13 08:57 Order name: RAD EDMS 03/13 11:37 Order name: ABG Arterial Blood Gas EDMS 03/13 21:30 Order name: Glucose, Ancillary Testing EDMS EC:23 Rate is 99 beats/min. Rhythm is regular. Left axis deviation noted. QRS interval is tw4 normal. QT interval is normal. No Q waves. T waves are Normal. No ST changes noted. Clinical impression: NSR w/ Non-specific ST/T Changes. Interpreted by me. Reviewed by me. Administered Medications: 21:28 Drug: SOLU-Medrol 80 mg Route: IVP; Site: left antecubital; 22:30 Follow up: Response: No adverse reaction rr5 21:30 Drug: AZITHromycin 500 mg Route: IVPB; Infused Over: 1 hrs; Site: left antecubital; 22:30 Follow up: Response: No adverse reaction; IV Status: Completed infusion; IV Intake: rr5 250ml Disposition: 03/11/20 20:32 Hospitalization ordered by Jonathan Barth for Inpatient Admission. Preliminary diagnosis are Coronavirus infection, unspecified, Other viral pneumonia, Hypoxemia. - Bed requested for [facility] ER HOLD. - Status is Inpatient Admission. - Condition is Stable. - Problem is new. - Symptoms have improved. Signatures: Dispatcher [employer] EDRI Taylor Castellanos RN RN Vlad Mojica MD MD rn Pena, Laura RN RN lp1 Susan Lagos Rene Yee RN RN ja1 Demetrius English MD MD tw4 Derick Rueda RN RN rr5 Emi Alvarez RN RN ec1 Corrections: (The following items were deleted from the chart) 21: 20:12 CORONAVIRUS ordered. [facility] 22:31 20:32 Hospitalization Ordered by Jonathan Barth MD for Inpatient Admission. ja1 Preliminary diagnosis is Coronavirus infection, unspecified; Other viral pneumonia; Hypoxemia. Bed requested for Telemetry/MedSurg (Inpatient). Status is Inpatient Admission. Condition is Stable. Problem is new. Symptoms have improved. tw4 03/14 00:00 12 22:31 03/11/2020 20:32 Hospitalization Ordered by Jonathan Barth MD for Inpatient Admission. Preliminary diagnosis is Coronavirus infection, unspecified; Other viral pneumonia; Hypoxemia. Bed requested for [facility] ER HOLD. Status is Inpatient Admission. Condition is Stable. Problem is new. Symptoms have improved. ja1
--- NOTE | 2020-03-11 20:33 | ER ---
Nurse's Notes [facility] Name: Titi Champagne Jr Age: 69 yrs Sex: Male : 1950 Arrival Date: 03/11/2020 Time: 18:59 Bed 19 Private MD: Diagnosis: Coronavirus infection, unspecified;Other viral pneumonia;Hypoxemia Presentation: 03/11 18:59 Acuity: HAYLEY 2 sv 18:59 Method Of Arrival: EMS: [facility] sv 19:07 Chief complaint: EMS states: We were called out because the family thinks he has ec1 pneumonia. He is breathing 60 a minute and we placed him on NC at 6 L. On arrival pt is 83% on 6 L, pt tachynepic approx 40 rpm. Pt placed on NRB at 15 L. Coronavirus screen: Client presents with at least one sign or symptom that may indicate coronavirus-19. Provider contacted for isolation considerations. Ebola Screen: Patient negative for fever greater than or equal to 101.5 degrees Fahrenheit, and additional compatible Ebola Virus Disease symptoms Patient denies exposure to infectious person. Patient denies travel to an Ebola-affected area in the 21 days before illness onset. Initial Sepsis Screen: Does the patient meet any 2 criteria? RR > 20 per min. HR > 90 bpm. Does the patient have a suspected source of infection? Yes: Productive cough/pneumonia. Risk Assessment: Do you want to hurt yourself or someone else? Patient reports no desire to harm self or others. Triage Assessment: 19:07 General: Appears distressed, uncomfortable, Behavior is cooperative, anxious. EENT: No ec1 signs and/or symptoms were reported regarding the EENT system. Neuro: Level of Consciousness is awake, alert, obeys commands. Cardiovascular: Rhythm is sinus tachycardia. Respiratory: Reports shortness of breath cough that is Airway is patent Respiratory effort is labored, Respiratory pattern is tachypnea Breath sounds are diminished bilaterally. Respiratory: Onset: The symptoms/episode began/occurred today, the patient has severe shortness of breath. GI: No signs and/or symptoms were reported involving the gastrointestinal system. : No signs and/or symptoms were reported regarding the genitourinary system. Derm: No signs and/or symptoms reported regarding the dermatologic system. Musculoskeletal: No signs and/or symptoms reported regarding the musculoskeletal system. Historical: - Allergies: 19:50 No Known Allergies; lp1 - Home Meds: 22:59 gabapentin 300 mg oral cap 1 cap at bedtime [Active]; CoQ-10 100 mg oral cap pm rr5 [Active]; triamterene-hydrochlorothiazid 37.5-25 mg Oral cap 1 cap once daily [Active]; tamsulosin 0.4 mg oral cp24 1 cap once daily [Active]; sulfamethoxazole-trimethoprim Oral 1 tab once daily [Active]; clopidogrel 75 mg oral tab 1 tab once daily [Active]; Toviaz 8 mg oral Tb24 1 tab once daily [Active]; perphenazine 4 mg oral tab 1 tab at bedtime [Active]; Centrum Silver oral oral daily [Active]; rosuvastatin 5 mg oral tab 1 tab at HS [Active]; Sleep Aid (diphenhydramine) 50 mg oral cap 1 cap once daily [Active]; - 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 - Social history:: Smoking status: Patient denies any tobacco usage or history of. Screenin:26 Abuse screen: Denies threats or abuse. Denies injuries from another. Nutritional lp1 screening: No deficits noted. Tuberculosis screening: No symptoms or risk factors identified. Fall Risk Total Mann Fall Scale indicates High Risk Score (45 or more points). Fall prevention measures have been instituted. Side Rails Up X 2 Family Present and informed to notify staff if the need to leave the bedside As available patient and family educated on Fall Prevention Program and Strategies. Assessment: 19:20 General: Appears ill, Behavior is cooperative. Pain: Denies pain. Neuro: Level of lp1 Consciousness is awake, alert, obeys commands, Oriented to person, place. Cardiovascular: Patient's skin is warm and dry. Respiratory: Reports shortness of breath Airway is patent Respiratory effort is even, Respiratory pattern is symmetrical, Breath sounds are diminished bilaterally. Onset: The symptoms/episode began/occurred gradually, the patient has moderate shortness of breath. GI: Abdomen is non-distended. : No signs and/or symptoms were reported regarding the genitourinary system. EENT: No signs and/or symptoms were reported regarding the EENT system. Derm: Skin with poor turgor Skin is dry, Skin is normal, Skin temperature is warm. Musculoskeletal: No deficits noted. 20:30 Reassessment: Patient lying in bed, eyes closed, respirations even, shallow, NC in lp1 place at 5L; caregiver at bedside. 21:30 Reassessment: No changes from previously documented assessment. Patient and caregiver lp1 aware of pending admission. 22:10 General: Appears in no apparent distress. comfortable, received from susan REEVES awake rr5 alert, admitted as ER hold, covid positive. 22:10 Pain: Denies pain. Neuro: Level of Consciousness is awake, alert, obeys commands, rr5 Oriented to person, place, borderline mental retardation as stated by family member. Cardiovascular: Capillary refill < 3 seconds Patient's skin is warm and dry. Rhythm is irregular. Respiratory: Airway is patent Respiratory effort is even, shallow, Respiratory pattern is symmetrical, tachypnea hooked on oxygen at 15 L/min on Non rebreather mask. GI: No signs and/or symptoms were reported involving the gastrointestinal system. : No signs and/or symptoms were reported regarding the genitourinary system. EENT: Parent/caregiver reports the patient having deaf. Derm: Skin is intact, is healthy with good turgor, Skin temperature is warm. Musculoskeletal: Circulation, motion, and sensation intact. Capillary refill < 3 seconds. 22:40 Reassessment: Patient appears in no apparent distress at this time. RT changed the rr5 oxygen support to high flow nasal cannula. Respiratory: 30%/75% Oxygen. Vital Signs: 18:59 BP 145 / 60; Pulse 105; Resp 40; Temp 100.1; Pulse Ox 83% on 6 lpm NC; sv 19:50 BP 146 / 69; Pulse 104; Resp 22; Temp 99.3(O); Pulse Ox 90% on 5 lpm NC; lp1 20:30 BP 129 / 73; Pulse 102; Resp 21; Pulse Ox 90% on 5 lpm NC; lp1 21:00 BP 130 / 71; Pulse 105; Resp 24; Pulse Ox 90% on 5 lpm NC; lp1 22:10 BP 146 / 85; Pulse 111; Resp 30; Temp 98.4; Pulse Ox 86% on 5 lpm NC; rr5 23:10 BP 141 / 80; Pulse 116; Resp 33; Pulse Ox 90% ; rr5 23:11 Weight 81.65 kg; Height 5 ft. 5 in. (165.10 cm); rr5 23:11 Body Mass Index 29.95 (81.65 kg, 165.10 cm) rr5 18:59 Pt placed on 100% NRB. O2 sat up to 98%. sv 22:10 changed to non rebreather mask at 15 liter/min rr5 23:10 30%/75% oxygen high flow rr5 ED Course: 18:51 Arm band placed on Patient placed in an exam room, on a stretcher, on oxygen, on sv vehicle monitor technician, on pulse oximetry. 18:55 Patient has correct armband on for positive identification. Bed in low position. Call sv light in reach. Side rails up X2. Adult w/ patient. Pulse ox on. NIBP on. 18:59 Patient arrived in ED. sv 19:00 Triage completed. sv 19:06 Emi Alvarez RN is Primary Nurse. ec1 19:06 Demetrius English MD is Attending Physician. tw4 19:08 Report given to Bibi REEVES and Susan REEVES. sv 19:08 Inserted saline lock: 20 gauge in left antecubital area, using aseptic technique. Blood ec1 collected. 19:33 Chest Single View XRAY In Process Unspecified. EDMS 20:31 Jonathan Barth MD is Hospitalizing Provider. tw4 22:20 Report given to Derick Rueda RN. Pt was positive for COvid notified Primary Nurse. wh 23:05 No provider procedures requiring assistance completed. Patient admitted, IV remains in rr5 place. intact, No redness/swelling at site. 12 20:29 Primary Nurse role handed off by Emi Alvarez, LALA mw2 Administered Medications: 12 21:28 Drug: SOLU-Medrol 80 mg Route: IVP; Site: left antecubital; wh 22:30 Follow up: Response: No adverse reaction rr5 21:30 Drug: AZITHromycin 500 mg Route: IVPB; Infused Over: 1 hrs; Site: left antecubital; wh 22:30 Follow up: Response: No adverse reaction; IV Status: Completed infusion; IV Intake: rr5 250ml Intake: 22:30 IV: 250ml; Total: 250ml. rr5 Output: 23:00 Urine: 300ml (Voided); Total: 300ml. rr5 Outcome: 20:32 Decision to Hospitalize by Provider. tw4 23:05 Admitted to ER Hold. Please see [facility] for further documentation. rr5 23:05 Condition: stable 23:05 Instructed on the need for admit. 03/13 23:59 Admitted to ICU accompanied by nurse, accompanied by tech, via stretcher, room 8, with dw oxygen, on monitor, with chart, Report called to Neelima Bob RN 03/14 00:00 Patient left the ED. dw Signatures: Dispatcher [employer] EDMS Carmen Louis RN Taylor Dinh RN RN dw Bibi Pearson RN RN lp1 Susan Lagos Terrence, MD MD tw4 Brandee Michelle 2 Derick Rueda RN RN rr5 Emi Alvarez RN RN ec1 Corrections: (The following items were deleted from the chart) 03/11 19:11 18:59 BP 145 / 60; Pulse 105bpm; Pulse Ox 83% RA; Pt placed on 100% NRB. O2 sat up to sv 98%.; sv 22:51 22:29 Reassessment: rr5 rr5 03/12 02:42 03/11 19:20 Respiratory: Reports shortness of breath Airway is patent Respiratory lp1 effort is even, Respiratory pattern is symmetrical, Breath sounds are diminished bilaterally. the patient has moderate shortness of breath lp1 03/12 02:43 03/11 21:30 Reassessment: No changes from previously documented assessment. lp1 lp1
[2020-03-11] MEDS ORDERED: NA CHLORIDE 0.9% 250 ML ONE (21:37)
[2020-03-11] MEDS ORDERED: AZITHROMYCIN 500 MG INJ IVPB ONE (21:37)
[2020-03-11] MEDS ORDERED: METHYLPREDNISOLONE 125 MG INJ ONE (21:37)
[2020-03-11] MEDS ORDERED: ONDANSETRON 4 MG/2 ML VIAL IV PRN (21:45)
[2020-03-11] MEDS ORDERED: ACETAMINOPHEN 500 MG TAB PO PRN (21:45)
[2020-03-11] MEDS: APIXABAN 5 MG TABLET PO SCH (21:53)
--- NOTE | 2020-03-11 21:54 | P.HP ---
Certification for Inpatient Patient admitted to: Inpatient With expected LOS: >2 Midnights Practitioner: I am a practitioner with admitting privileges, knowledge of patient current condition, hospital course, and medical plan of care. Services: Services provided to patient in accordance with Admission requirements found in Title 42 Section 412.3 of the Code of Federal Regulations Patient History Date of Service: 03/12/20 (Hospital is) Reason for admission: Pneumonia due to quiñonez virus History of Present Illness: Patient is 69 years of age been sick for about a week complaining of cough fever shortness of breath apparently he went to [facility] emergency room with the hematuria was seen by urologist may have been exposed he also went to [facility] as very hard of hearing otherwise very functional Allergies No Known Allergies Allergy (Unverified 03/11/20 23:59) Home Medications: Clopidogrel Bisulfate [Plavix*] 1 tab PO DAILY 03/12/20 Fesoterodine Fumarate [Toviaz] 8 mg PO DAILY 03/12/20 Gabapentin 1 tab PO BEDTIME 03/12/20 Multivit-Min/FA/Lycopen/Lutein [Centrum Silver Tablet] 1 tab PO DAILY 03/12/20 Perphenazine [Trilafon] 4 mg PO BEDTIME 03/12/20 Rosuvastatin Calcium 5 mg PO BEDTIME 03/12/20 Sulfamethoxazole/Trimethoprim [Sulfamethoxazole-Tmp Ss Tablet] 1 tab PO DAILY 03/12/20 Tamsulosin [Flomax] 0.4 mg PO DAILY 03/12/20 Triamterene/Hydrochlorothiazid [Triamterene-Hctz 37.5-25 mg Tb] 1 tab PO DAILY 03/12/20 Ubidecarenone [Co Q-10] 100 mg PO DAILY 03/12/20 Review of Systems is unable to be obtained Physical Examination - Vital Signs Temperature: 100.7 F Blood Pressure: 145/60 Pulse: 105 Respirations: 22 Pulse Ox (%): 83 - Physical Exam General: Alert, Mild distress Respiratory: Crackles/rales, Expiratory wheezes Cardiovascular: No edema, Regular rate/rhythm Gastrointestinal: Normal bowel sounds, Soft and benign Musculoskeletal: No clubbing Integumentary: No rashes, No breakdown Neurological: Other (Patient is very hard of hearing) - Studies Laboratory Data (last 24 hrs) 03/11/20 19:06: PT 12.8 H, INR 1.09, APTT 29.9 03/11/20 19:06: WBC 5.9, Hgb 14.3, Hct 41.9, Plt Count 168 03/11/20 19:06: Sodium 140, Potassium 3.7, BUN 25 H, Creatinine 1.41 H, Glucose 131 H, Total Bilirubin 0.5, AST 120 H, ALT 63, Alkaline Phosphatase 92 Assessment and Plan - Problems (Diagnosis) (1) Pneumonia due to 2019 novel coronavirus Current Visit: Yes Status: Acute Plan: Patient is 69 years of age admitted with pneumonia due to quiñonez virus CT scan is very characteristic patient was hypoxic on admission mild impairment of renal function vital signs all reviewed admit for steroid discussed with sister he is usually very function Plan to discharge in: 48 Hours - Advance Directives Does patient have a Living Will: No Does patient have a Durable POA for Healthcare: No
[2020-03-11 23:34] VITALS: BMI 29.9
[2020-03-12] MEDS ORDERED: APIXABAN 5 MG TABLET ONE (00:06)
[2020-03-12 06:20] LABS: Absolute Lymphocytes (CBC) 0.4 K/uL (0.7-4.9); Basophils % 0.1 % (0-1.3); Lymphocytes % 7.3 % (15.3-44.8); MPV 8.7 fL (7.6-11.3); RBC Red Blood Cell Count 4.45 M/uL (4.33-5.43)
[2020-03-12 06:32] LABS: Albumin 2.4 g/dL (3.4-5.0); Bilirubin Total 0.7 mg/dL (0.2-1.0); Potassium 3.7 mmol/L (3.5-5.1); Protein, Total 6.2 g/dL (6.4-8.2)
[2020-03-12] MEDS ORDERED: Remdesivir 200 MG in NA CHLORIDE 0.9% 250 ML IV ONE ×2 (08:57→11:00)
[2020-03-12] MEDS: METHYLPREDNISOLONE 125 MG INJ IV SCH ×2 (09:00→21:00)
[2020-03-12] MEDS: APIXABAN 5 MG TABLET PO SCH ×2 (09:00→21:00)
[2020-03-12] MEDS ORDERED: METHYLPREDNISOLONE 40 MG INJ ONE ×2 (09:16→09:17)
[2020-03-12] MEDS ORDERED: PNEUMOCOCCAL VACCINE 0.5 ML IMVAC ONE (12:00)
[2020-03-12] MEDS ORDERED: INFLUENZA VACCINE (for 3y+) 0.5 ML DOSE IMVAC ONE (12:00)
[2020-03-12] MEDS ORDERED: LORazepam 2 MG/ML VIAL IV ONE (13:41)
[2020-03-12] MEDS ORDERED: LORazepam 2 MG/ML VIAL ONE (14:05)
[2020-03-12] MEDS ORDERED: LORazepam 2 MG/ML VIAL IV PRN (18:24)
[2020-03-12] MEDS ORDERED: NA CHLORIDE 0.9% 1,000 ML ONE (18:57)
[2020-03-12] MEDS ORDERED: NA CHLORIDE 0.9% 1,000 ML IV SCH (19:00)
--- NOTE | 2020-03-12 19:08 | P.PN ---
Subjective Date of Service: 03/12/20 Chief Complaint: Pneumonia due to quiñonez virus Subjective: Worsening (Patient is still requiring high concentrations of oxygen refuse to wear the BiPAP machine) Review of Systems is unable to be obtained Physical Examination - Vital Signs Temperature: 97.6 F Blood Pressure: 109/63 Pulse: 60 Respirations: 27 Pulse Ox (%): 96 - Physical Exam General: Moderate distress Respiratory: Crackles/rales Cardiovascular: No edema, Regular rate/rhythm - Studies Laboratory Data (last 24 hrs) 03/11/20 19:06: PT 12.8 H, INR 1.09, APTT 29.9 03/11/20 19:06: WBC 5.9, Hgb 14.3, Hct 41.9, Plt Count 168 03/11/20 19:06: Sodium 140, Potassium 3.7, BUN 25 H, Creatinine 1.41 H, Glucose 131 H, Total Bilirubin 0.5, AST 120 H, ALT 63, Alkaline Phosphatase 92 Microbiology Data (last 24 hrs): 03/11/20 20:35 Nasopharnyx Influenza Type A Antigen Screen - Final 03/11/20 20:35 Nasopharnyx Influenza Type B Antigen Screen - Final 03/11/20 20:35 Throat Group A Streptococcus Rapid Screen - Final Assessment & Plan - Problems (Diagnosis) (1) Pneumonia due to 2019 novel coronavirus Current Visit: Yes Status: Acute Plan: Patient admitted with pneumonia due to quiñonez virus he has respiratory failure requiring high concentrations of oxygen labs reviewed continue with BiPAP use Ativan for sedation Remdesmir ordered continue with Ativan titrate sat to 90% Plan to discharge in: Greater than 2 days
--- NOTE | 2020-03-12 19:50 | P.PN ---
Subjective Date of Service: 03/12/20 Patient's respiratory status has worsened. Patient is more tachypneic. Will go ahead and change him to BiPAP support. Spoke with patient's sister who is his medical prior of trade mark attorney. She states he is a Jehovah Witness and would not want convalescent plasma. She did ask me about antiviral and she wanted to see if we could start Remdesivir. Will go ahead and get this ordered per patient's family request. Review of Systems 10-point ROS is otherwise unremarkable Physical Examination - Vital Signs Temperature: 100.7 F Blood Pressure: 145/60 Pulse: 105 Respirations: 22 Pulse Ox (%): 83 - Physical Exam General: Alert, In no apparent distress, Other (Patient respiratory distress and is on BiPAP support) HEENT: Other (BiPAP mask) Respiratory: Diminished, Rhonchi/gurgles Cardiovascular: Regular rate/rhythm, Normal S1 S2, No murmurs Gastrointestinal: Normal bowel sounds, Soft and benign, Non-distended, No tenderness Musculoskeletal: No clubbing, No swelling, No tenderness Neurological: Sensation intact, Cranial nerves 3-12 intact - Studies Laboratory Data (last 24 hrs) 03/11/20 19:06: WBC 5.9, Hgb 14.3, Hct 41.9, Plt Count 168 03/11/20 19:06: Sodium 140, Potassium 3.7, BUN 25 H, Creatinine 1.41 H, Glucose 131 H, Total Bilirubin 0.5, AST 120 H, ALT 63, Alkaline Phosphatase 92 Microbiology Data (last 24 hrs): 03/11/20 20:35 Nasopharnyx Influenza Type A Antigen Screen - Final 03/11/20 20:35 Nasopharnyx Influenza Type B Antigen Screen - Final 03/11/20 20:35 Throat Group A Streptococcus Rapid Screen - Final Medications List Reviewed: Yes Assessment & Plan - Problems (Diagnosis) (1) Acute respiratory failure due to COVID-19 Current Visit: Yes Status: Acute (2) Mental disability Current Visit: Yes Status: Acute (3) Deafness Current Visit: Yes Status: Acute (4) Pneumonia due to 2019 novel coronavirus Current Visit: Yes Status: Acute - Plan 1. Intravenous Remdesivir per family's request 2. Patient's family states he is a Jehovah Witness and they do not want convalescent plasma 3. Repeat chest x-ray is symptoms are progressively worsening 4. O2 per protocol 5. Pulmonary consultation 6. Continue with albuterol inhaler therapy; IV steroids; zinc and vitamin-C 7. Monitor LFTs 8. Repeat labs including D-dimer, ferritin, and CRP and LFTs 9. GI and DVT prophylaxis Discharge Plan: Home Plan to discharge in: Greater than 2 days - Advance Directives Does patient have a Living Will: No Does patient have a Durable POA for Healthcare: No - Code Status/Comfort Care Code Status Assessed: Yes Code Status: Full Code Critical Care: No Time Spent Managing PTS Care (In Minutes): 40
[2020-03-12] MEDS ORDERED: METHYLPREDNISOLONE 125 MG INJ ONE (20:24)
[2020-03-12] MEDS ORDERED: TAMSULOSIN 0.4 MG SR CAP ONE (20:24)
[2020-03-12] MEDS: TAMSULOSIN 0.4 MG SR CAP PO SCH (21:00)
[2020-03-13] MEDS ORDERED: LORazepam 2 MG/ML VIAL ONE (00:11)
[2020-03-13 03:52] LABS: Absolute Lymphocytes (CBC) 0.4 K/uL (0.7-4.9); Basophils % 0.1 % (0-1.3); Hematocrit 37.2 % (39.6-49.0); Lymphocytes % 3.7 % (15.3-44.8); MPV 8.8 fL (7.6-11.3); RBC Red Blood Cell Count 4.09 M/uL (4.33-5.43)
[2020-03-13 04:10] LABS: Albumin 2.1 g/dL (3.4-5.0); Bilirubin Total 0.6 mg/dL (0.2-1.0); Magnesium 2.1 mg/dL (1.8-2.4); Phosphorus 3.6 mg/dL (2.5-4.9); Potassium 3.6 mmol/L (3.5-5.1); Protein, Total 5.3 g/dL (6.4-8.2); Troponin I 0.13 ng/mL (0.0-0.045)
[2020-03-13 04:15] LABS: Bilirubin Direct 0.3 mg/dL (0-0.2); Bilirubin Total 0.7 mg/dL (0.2-1.0); C-Reactive Protein 89.6 mg/L (<3.00); Protein, Total 5.3 g/dL (6.4-8.2)
[2020-03-13 04:55] LABS: Blood Morphology Comment NOTED (NOT SEEN); Burr Cells 2+; Platelet Estimate ADEQ
--- NOTE | 2020-03-13 07:26 | P.PN ---
Subjective Date of Service: 03/13/20 Chief Complaint: Pneumonia due to quiñonez virus Patient's condition is stable is still requiring BiPAP Review of Systems General: Weakness Respiratory: Shortness of Breath Physical Examination - Vital Signs Temperature: 98.3 F Blood Pressure: 102/64 Pulse: 75 Respirations: 26 Pulse Ox (%): 90 - Studies Medications List Reviewed: Yes Assessment & Plan - Problems (Diagnosis) (1) Pneumonia due to 2019 novel coronavirus Current Visit: Yes Status: Acute Plan: Patient admitted with respiratory failure due to coronal virus continued titrate his O2 down CRP is declining scheduled to see receive remdesmir maybe a slight worsening on his chest x-ray
[2020-03-13] MEDS ORDERED: METHYLPREDNISOLONE 40 MG INJ ONE ×2 (08:33→21:16)
--- NOTE | 2020-03-13 08:56 | RAD REPORT ---
EXAM DESCRIPTION: RAD - Chest Single View - 03/13/2020 7:07 am CLINICAL HISTORY: Dubose virus pneumonia Chest pain. COMPARISON: Chest Single View dated 03/11/2020 FINDINGS: Portable technique limits examination quality. Moderate worsening in bilateral pulmonary opacities noted since the comparative study. This is compat ible with worsening pneumonia. The heart is mildly prominent size. No displaced fractures. IMPRESSION: Moderate worsening in lung aeration since comparative study.
[2020-03-13] MEDS: METHYLPREDNISOLONE 125 MG INJ IV SCH ×2 (09:00→21:25)
[2020-03-13] MEDS: APIXABAN 5 MG TABLET PO SCH ×2 (09:00→21:25)
[2020-03-13] MEDS: Remdesivir 100 MG in NA CHLORIDE 0.9% 250 ML IV SCH (09:00)
[2020-03-13] MEDS ORDERED: APIXABAN 5 MG TABLET ONE ×2 (10:42→21:15)
[2020-03-13 11:26] LABS: Arterial Blood Carboxyhemoglob 0.8 % (0-1.5); Blood Gas Oxyhemoglobin 91.8 % (94-97); Blood O2 Saturation 93.2 % (92-98.5)
--- NOTE | 2020-03-13 17:52 | P.PN ---
Subjective Date of Service: 03/13/20 Chief Complaint: Pneumonia due to quiñonez virus Subjective: Other (overall better.) Physical Examination - Vital Signs Temperature: 98.0 F Blood Pressure: 128/67 Pulse: 79 Respirations: 24 Pulse Ox (%): 94 - Physical Exam General: Alert, Cooperative HEENT: Atraumatic Neck: Supple Respiratory: Other (On BiPAP.) Cardiovascular: Normal pulses, Regular rate/rhythm Neurological: Normal speech, Normal strength at 5/5 x4 extr, Normal tone, Normal affect - Studies Medications List Reviewed: Yes Assessment & Plan Discharge Plan: Home Plan to discharge in: 48 Hours Physician Review Additional Text: - Problems (Diagnosis) (1) Acute respiratory failure due to COVID-19 Current Visit: Yes Status: Acute (2) Mental disability Current Visit: Yes Status: Acute (3) Deafness Current Visit: Yes Status: Acute (4) Pneumonia due to 2019 novel coronavirus Current Visit: Yes Status: Acute - Plan 1. Continue Intravenous Remdesivir per family's request 2. Patient's family states he is a Jehovah Witness and they do not want convalescent plasma 3. Continue with current treatment. Case discussed with pulmonology. Continue with pulmonology recommendations. 4. O2 per protocol patient currently on BiPAP. 5. Continue with albuterol inhaler therapy; IV steroids; zinc and vitamin-C 6. Monitor LFTs 7. Repeat labs including D-dimer, ferritin, and CRP and LFTs 8. GI and DVT prophylaxis Time Spent Managing Pts Care (In Minutes): 55
[2020-03-13] MEDS ORDERED: D50W 25 GM/50 ML SYRINGE IV PRN (17:57)
[2020-03-13] MEDS ORDERED: GLUCAGON 1 MG/VIAL IM PRN (17:57)
[2020-03-13] MEDS ORDERED: PERPHENAZINE 4 MG PO SCH (21:00)
[2020-03-13] MEDS: INSULIN -REGULAR HUMAN 50 UNIT/0.5 ML ML SQ SCH (21:00)
[2020-03-13] MEDS ORDERED: HOME MED 1 EA UNK (Rosuvastatin Calcium [Rosuvastatin Calcium] 5 MG) PO SCH (21:00)
[2020-03-13] MEDS ORDERED: GABAPENTIN 300 MG CAP ONE (21:15)
[2020-03-13] MEDS: TAMSULOSIN 0.4 MG SR CAP PO SCH (21:25)
[2020-03-13] MEDS: ROSUVASTATIN 10 MG TAB PO SCH (21:25)
[2020-03-13] MEDS: GABAPENTIN 300 MG CAP PO SCH (21:25)
[2020-03-13] MEDS ORDERED: TAMSULOSIN 0.4 MG SR CAP ONE (21:38)
[2020-03-13] MEDS ORDERED: INSULIN -REGULAR HUMAN 50 UNIT/0.5 ML ML ONE (21:40)
[2020-03-13] MEDS ORDERED: ACETAMINOPHEN 500 MG TAB ONE (21:43)
[2020-03-13] MEDS ORDERED: LORazepam 2 MG/ML VIAL IV ONE (22:43)
[2020-03-14 06:23] LABS: Bilirubin Direct 0.2 mg/dL (0-0.2); Bilirubin Total 0.6 mg/dL (0.2-1.0); C-Reactive Protein 42.8 mg/L (<3.00); Protein, Total 5.2 g/dL (6.4-8.2)
[2020-03-14] MEDS ORDERED: GLUCAGON 1 MG/VIAL IM PRN (07:48)
[2020-03-14] MEDS ORDERED: D50W 25 GM/50 ML SYRINGE IV PRN (07:48)
[2020-03-14] MEDS: INSULIN -REGULAR HUMAN 50 UNIT/0.5 ML ML SQ SCH ×4 (08:00→21:00)
[2020-03-14] MEDS: Remdesivir 100 MG in NA CHLORIDE 0.9% 250 ML IV SCH (08:00)
[2020-03-14] MEDS ORDERED: INSULIN GLARGINE 100 UNITS/ML SQ SCH (08:00)
--- NOTE | 2020-03-14 08:52 | P.PN ---
Subjective Date of Service: 03/14/20 Chief Complaint: Pneumonia due to quiñonez virus Subjective: Other (Patient reports stable at this time. Patient still requiring high-flow. Patient required medication for agitation.) Physical Examination - Vital Signs Temperature: 96.6 F Blood Pressure: 100/54 Pulse: 59 Respirations: 25 Pulse Ox (%): 91 - Physical Exam General: Alert, Cooperative Respiratory: Diminished (Diminished to the bases) Cardiovascular: Normal pulses Neurological: Normal speech, Normal strength at 5/5 x4 extr, Normal tone, Normal affect - Studies Medications List Reviewed: Yes Assessment & Plan Discharge Plan: Home Plan to discharge in: 48 Hours Physician Review Additional Text: Impression: Dyspnea secondary to acute respiratory failure related to bilateral COVID 19 pneumonia Hypertension Hyperlipidemia Hyperglycemia with new diagnosis of diabetes mellitus type 2 History of mental disability and deafness Patient is Mu-ism Plan: Dyspnea secondary to acute respiratory failure related to bilateral COVID 19 pneumonia: Continue current treatment plan. Continue to wean off high-flow oxygen. Will try to limit medication for sedation. Will decrease IV steroid due to improved CRP. Continue Remdsivir protocol. Continue supplementation. Patient on Eliquis due to high risk for blood clots. Continue with vitamin supplementation. Will discuss with Pulmonary. Will need to discuss with family about SNF placement at DC or with home oxygen. Anticipate continued improvement. Likely DC in 48 hours. Hypertension: Continue with medication. Hyperlipidemia: Continue with medication. Hyperglycemia with new diagnosis of diabetes mellitus type 2: A1c was 6.5. Continue with accuchecks and sliding scale. Consider Metformin at discharge or ADA. History of mental disability and deafness: Stable. Continue with current home meds. Patient is Mu-ism: No plasma. Time Spent Managing Pts Care (In Minutes): 55
[2020-03-14] MEDS ORDERED: FESOTERODINE FUMARATE 8 MG PO SCH (09:00)
[2020-03-14] MEDS ORDERED: METHYLPREDNISOLONE 125 MG INJ IV SCH ×2 (09:00)
[2020-03-14] MEDS ORDERED: Ubidecarenone [Co Q-10] 100 MG PO SCH (09:00)
[2020-03-14] MEDS: APIXABAN 5 MG TABLET PO SCH ×2 (09:10→21:55)
[2020-03-14] MEDS: MULTIVIT W/ MINERAL TAB PO SCH (09:10)
[2020-03-14] MEDS: METHYLPREDNISOLONE 125 MG INJ IV SCH ×3 (09:12→21:58)
--- NOTE | 2020-03-14 12:18 | P.PN ---
Subjective Date of Service: 03/14/20 Chief Complaint: Respiratory failure worsening Patient is worsening not high concentrations of oxygen diffusing uses BiPAP Review of Systems Respiratory: Cough, Shortness of Breath Physical Examination - Vital Signs Temperature: 96.6 F Blood Pressure: 100/54 Pulse: 59 Respirations: 25 Pulse Ox (%): 91 - Studies Microbiology Data (last 24 hrs): 03/11/20 20:35 Throat Culture & Sensitivity - Final Medications List Reviewed: Yes Assessment & Plan - Problems (Diagnosis) (1) Pneumonia due to 2019 novel coronavirus Current Visit: Yes Status: Acute Plan: Respiratory failure is worsening his on 100% oxygen I have increased the dose of his steroid CRP is not less than 50 advance diet may need higher Dobhoff if not eating encourage patient is to use BiPAP
[2020-03-14] MEDS ORDERED: LORazepam 2 MG/ML VIAL IV ONE ×2 (20:07→21:04)
[2020-03-14] MEDS ORDERED: LORazepam 2 MG/ML VIAL ONE ×2 (20:23→21:21)
[2020-03-14] MEDS ORDERED: DIGOXIN 0.25 MG/ML AMP IV ONE (21:34)
[2020-03-14] MEDS: TAMSULOSIN 0.4 MG SR CAP PO SCH (21:55)
[2020-03-14] MEDS: GABAPENTIN 300 MG CAP PO SCH (21:55)
[2020-03-14] MEDS: ROSUVASTATIN 10 MG TAB PO SCH (21:55)
[2020-03-14] MEDS ORDERED: DIPHENHYDRAMINE 25 MG TAB/CAP PO SCH (22:00)
[2020-03-14] MEDS: PERPHENAZINE 4 MG PO SCH (22:03)
--- NOTE | 2020-03-14 22:04 | P.PN ---
Date of Service: 03/14/20 Was called by nursing staff as patient was not tolerating BiPAP or high-flow nasal cannula, patient was confused, pulling off oxygen. Initially gave patient Ativan 0.5 mg IV x2, this helped some, patient was able to tolerate high-flow nasal cannula but even at maximum settings with 100% FiO2 at 40 L patient was hypoxic with saturations in the high 70s to low 80s. Added non-rebreather at 15 liters/minute on top of high-flow nasal cannula, this improves saturations to around 90%. Discussed case with hospitalist attending and pulmonology. Call to update sister who is the power of document control assistant with plan of care. Patient was initially do not intubate but after discussing with her that if she got to the point were his heart stopped he would be from hypoxia and CPR would not fix this she was amendable to full DNR status. Will continue to provide patient with high-flow oxygen and non-rebreather as he is currently saturating well around 90%, if saturations decrease will likely require BiPAP. If patient does not tolerate BiPAP will need to give Geodon and attempt BiPAP again. Risk for aspiration discussed with pulmonology and sister, agreed that the benefits outweigh risk at this time. Will continue to monitor closely throughout the evening.
[2020-03-14] MEDS: WATER FOR INJ,STERILE 10 ML IM PRN (23:30)
[2020-03-14] MEDS: ZIPRASIDONE MESYLA 20 MG/VIAL IM PRN (23:30)
[2020-03-15 06:30] LABS: Albumin 2.3 g/dL (3.4-5.0); Bilirubin Direct 0.3 mg/dL (0-0.2); Bilirubin Total 0.8 mg/dL (0.2-1.0); C-Reactive Protein 33.3 mg/L (<3.00); Ferritin 740.8 ng/mL (26-388); Protein, Total 5.6 g/dL (6.4-8.2)
[2020-03-15] MEDS: INSULIN -REGULAR HUMAN 50 UNIT/0.5 ML ML SQ SCH ×4 (07:30→21:20)
[2020-03-15] MEDS ORDERED: INSULIN GLARGINE 100 UNITS/ML SQ SCH (08:00)
[2020-03-15] MEDS: FESOTERODINE FUMARATE 8 MG PO SCH (09:00)
[2020-03-15] MEDS: MULTIVIT W/ MINERAL TAB PO SCH (09:00)
[2020-03-15] MEDS ORDERED: METHYLPREDNISOLONE 125 MG INJ IV SCH (09:00)
[2020-03-15] MEDS: Ubidecarenone [Co Q-10] 100 MG PO SCH (09:00)
[2020-03-15] MEDS: Remdesivir 100 MG in NA CHLORIDE 0.9% 250 ML IV SCH (10:02)
[2020-03-15] MEDS: APIXABAN 5 MG TABLET PO SCH (10:03)
[2020-03-15] MEDS: ENOXAPARIN 80 MG/0.8 ML SQ SCH ×2 (11:18→21:19)
[2020-03-15] MEDS: ZIPRASIDONE MESYLA 20 MG/VIAL IM PRN (11:24)
[2020-03-15] MEDS: METHYLPREDNISOLONE 125 MG INJ IV SCH ×3 (11:28→21:19)
[2020-03-15] MEDS: WATER FOR INJ,STERILE 10 ML IM PRN (11:35)
--- NOTE | 2020-03-15 12:06 | P.PN ---
Subjective Date of Service: 03/15/20 Chief Complaint: Respiratory failure Patient is a did better while is been using the BiPAP require some Linus on to which she responded psychiatric medications need to be restarted Review of Systems is unable to be obtained Physical Examination - Vital Signs Temperature: 97.8 F Blood Pressure: 113/87 Pulse: 62 Respirations: 16 Pulse Ox (%): 97 - Studies Microbiology Data (last 24 hrs): 03/11/20 20:35 Throat Culture & Sensitivity - Final Medications List Reviewed: Yes Assessment & Plan - Problems (Diagnosis) (1) Pneumonia due to 2019 novel coronavirus Current Visit: Yes Status: Acute Plan: Patient is on respiratory failure tolerating BiPAP Les seems to help going to need nutrition evaluate for Dobhoff if needed CRP declining oxygen requirements have been declining
[2020-03-15] MEDS ORDERED: LORazepam 2 MG/ML VIAL IV PRN (13:54)
[2020-03-15] MEDS ORDERED: LORazepam 2 MG/ML VIAL IV SCH (14:00)
--- NOTE | 2020-03-15 15:18 | P.PN ---
Subjective Date of Service: 03/15/20 Chief Complaint: Respiratory failure Subjective: Other (Patient required medication for agitation last night. Patient on BiPAP now.) Physical Examination - Vital Signs Temperature: 97.8 F Blood Pressure: 113/87 Pulse: 62 Respirations: 16 Pulse Ox (%): 97 - Physical Exam General: Alert, Other (Some agitation noted.) Neck: Supple Respiratory: Other (Patient currently on BiPAP peer) Cardiovascular: Regular rate/rhythm Neurological: Other (Patient was some agitation.) - Studies Medications List Reviewed: Yes Assessment & Plan Discharge Plan: LTAC Plan to discharge in: 72 Hours Physician Review Additional Text: Impression: Dyspnea secondary to acute respiratory failure related to bilateral COVID 19 pneumonia Hypertension Hyperlipidemia Hyperglycemia with new diagnosis of diabetes mellitus type 2 History of mental disability and deafness Patient is Protestant Plan: Dyspnea secondary to acute respiratory failure related to bilateral COVID 19 pneumonia: Patient had some agitation last night. Case discussed with pulmonology. Will continue with Geodon as needed. Will provide Ativan as needed. Soft restraints in place. Advanced directives addressed last night with drupal php developer with sister. Patient now on DNR. Will try to place Dobhoff to help with nutrition with less agitation. Patient needs her nutrition. Will ne ed to consider other options if this is not possible. Will change Eliquis to Lovenox. Continue current management at this time. Monitor closely. Patient still critical this time. Hypertension: Continue with medication. Hyperlipidemia: Continue with medication. Hyperglycemia with new diagnosis of diabetes mellitus type 2: A1c was 6.5. Continue with accuchecks and sliding scale. Consider Metformin at discharge or ADA. History of mental disability and deafness: Stable. Continue with current home meds. Patient is Protestant: No plasma. Time Spent Managing Pts Care (In Minutes): 55
[2020-03-15] MEDS: LORazepam 2 MG/ML VIAL IV PRN ×2 (15:38→21:19)
--- NOTE | 2020-03-15 19:20 | RAD REPORT ---
EXAM DESCRIPTION: RAD - Abdomen 1 View (KUB) - 03/15/2020 7:02 pm CLINICAL HISTORY: dobhoff Pain COMPARISON: No comparisons FINDINGS: The tip of the enteric tube is in the stomach.
[2020-03-15] MEDS: TAMSULOSIN 0.4 MG SR CAP PO SCH (21:00)
[2020-03-15] MEDS: ROSUVASTATIN 10 MG TAB PO SCH (21:19)
[2020-03-15] MEDS: GABAPENTIN 300 MG CAP PO SCH (21:19)
[2020-03-15] MEDS: PERPHENAZINE 4 MG PO SCH (21:21)
[2020-03-16 01:25] VITALS: TEMP 97
[2020-03-16 07:43] LABS: Albumin 2.3 g/dL (3.4-5.0); Bilirubin Direct 0.5 mg/dL (0-0.2); Bilirubin Total 1.1 mg/dL (0.2-1.0); C-Reactive Protein 42.9 mg/L (<3.00); Protein, Total 5.7 g/dL (6.4-8.2)
[2020-03-16] MEDS: INSULIN -REGULAR HUMAN 50 UNIT/0.5 ML ML SQ SCH ×4 (10:26→19:49)
[2020-03-16] MEDS: ENOXAPARIN 80 MG/0.8 ML SQ SCH ×2 (10:26→19:48)
[2020-03-16] MEDS: MULTIVIT W/ MINERAL TAB PO SCH (10:26)
[2020-03-16] MEDS: Remdesivir 100 MG in NA CHLORIDE 0.9% 250 ML IV SCH (10:27)
[2020-03-16] MEDS: METHYLPREDNISOLONE 125 MG INJ IV SCH ×3 (10:27→19:51)
[2020-03-16] MEDS: FESOTERODINE FUMARATE 8 MG PO SCH (10:29)
[2020-03-16] MEDS: Ubidecarenone [Co Q-10] 100 MG PO SCH (10:30)
[2020-03-16] MEDS: LORazepam 2 MG/ML VIAL IV PRN ×2 (12:20→18:13)
--- NOTE | 2020-03-16 12:55 | P.PN ---
Subjective Date of Service: 03/16/20 Chief Complaint: Respiratory failure Subjective: Other (Patient in restraints. Patient appears improved.) Physical Examination - Vital Signs Temperature: 97.0 F Blood Pressure: 124/65 Pulse: 69 Respirations: 16 Pulse Ox (%): 91 - Physical Exam General: Other (Patient requiring some sedation.) Respiratory: Other (Patient on BiPAP.) Cardiovascular: Normal pulses Neurological: Other (Patient on soft restraints.) - Studies Medications List Reviewed: Yes Assessment & Plan Discharge Plan: LTAC Plan to discharge in: 24 Hours Physician Review Additional Text: Impression: Dyspnea secondary to acute respiratory failure related to bilateral COVID 19 pneumonia Hypertension Hyperlipidemia Hyperglycemia with new diagnosis of diabetes mellitus type 2 History of mental disability and deafness Patient is Mandaeism Plan: Dyspnea secondary to acute respiratory failure related to bilateral COVID 19 pneumonia: Patient continues with medication for agitation. Patient also on soft restraints. Continue BiPAP. Continue to wean off BiPAP. Case discussed in detail with pulmonology. Continue with plan of care. Looking to pursue to send patient to long-term acute care facility. This likely can occur as early as today. Will need to consider Dobhoff for feeds. Hypertension: Continue with medication. Hyperlipidemia: Continue with medication. Hyperglycemia with new diagnosis of diabetes mellitus type 2: A1c was 6.5. Continue with accuchecks and sliding scale. Hold Lantus until patient is taking good oral intake. Consider Metformin at discharge or ADA. History of mental disability and deafness: Stable. Continue with current home meds. Patient is Mandaeism: No plasma. Time Spent Managing Pts Care (In Minutes): 55
--- NOTE | 2020-03-16 15:43 | P.PN ---
Subjective Date of Service: 03/16/20 Chief Complaint: Respiratory failure Stable on BIPAP O2 requirement declining/ Still agitated Review of Systems is unable to be obtained Physical Examination - Vital Signs Temperature: 97.0 F Blood Pressure: 124/65 Pulse: 69 Respirations: 16 Pulse Ox (%): 91 - Physical Exam General: Unresponsive Neck: Supple Respiratory: Clear to auscultation bilaterally - Studies Medications List Reviewed: Yes Assessment & Plan - Problems (Diagnosis) (1) Pneumonia due to 2019 novel coronavirus Status: Acute Plan: Respiratory failure on BIPAP. BS high CRP is declining Fio2 60%. CW decreasing Fio2 . Increase insulin Pt is DNR and has a yazan. LAbs reviewed Physician Review Additional Text: I
--- NOTE | 2020-03-16 16:19 | P.DS ---
Admission Date: 03/11/20 Discharge Date: 03/16/20 Primary Care Provider: Unknown Dis[facility] Discharge Condition: GOOD Reason for Admission: Respiratory failure Consultations: Pulmonology Procedures: Medical problem list: Dyspnea secondary to acute respiratory failure related to bilateral COVID 19 pneumonia Hypertension Hyperlipidemia Hyperglycemia with new diagnosis of diabetes mellitus type 2 History of mental disability and deafness Patient is Sabianism Brief History of Present Illness: 69-year-old male with history of hypertension, hyperlipidemia, history of mental disability in deafness. Patient presented with increasing shortness of breath. Patient found to have acute respiratory failure with bilateral COVID19 pneumonia. Patient was admitted for treatment. Hospital Course: Patient presented with dyspnea secondary to acute respiratory failure related to bilateral COVID 19 pneumonia. During the course of his stay patient received IV steroids and Remdesivir. His progress was slow. Patient required BiPAP. Patient was seen and evaluated by pulmonology. Patient was evaluated for long- term acute care facility placement. Patient was accepted. At discharge patient currently on BiPAP at 60% Fi02. His inflammatory markers have improved. Patient will continue care at long-term acute care facility. Patient with hypertension, hyperlipidemia. At discharge patient will continue with current medications. Patient also with history of mental disability and deafness. This has remained stable. Patient is using medication from home. This will need to be continued. Patient also uses hearing aid. Patient was found to have hyperglycemia. Patient with new diagnosis of diabetes mellitus type 2. Patient remains on sliding scale. Consider metformin at discharge. Vital Signs/Physical Exam: Temp Pulse Resp BP Pulse Ox 97.0 F 69 16 124/65 91 03/16/20 15:43 03/16/20 15:43 03/16/20 15:43 03/16/20 15:43 03/16/20 15:43 General: Alert Respiratory: Other (Patient on BiPAP.) Cardiovascular: Normal pulses Neurological: Normal strength at 5/5 x4 extr, Normal tone Laboratory Data at Discharge: WBC 10.7 K/uL (4.3-10.9) D 03/13/20 03:30 Hgb 13.4 g/dL (13.6-17.9) L 03/13/20 03:30 Hct 37.2 % (39.6-49.0) L 03/13/20 03:30 Plt Count 177 K/uL (152-406) 03/13/20 03:30 PT 12.8 SECONDS (9.5-12.5) H 03/11/20 19:06 INR 1.09 03/11/20 19:06 APTT 29.9 SECONDS (24.3-36.9) 03/11/20 19:06 Sodium 143 mmol/L (136-145) 03/13/20 03:30 Potassium 3.6 mmol/L (3.5-5.1) 03/13/20 03:30 BUN 39 mg/dL (7-18) H 03/13/20 03:30 Creatinine 1.13 mg/dL (0.55-1.3) 03/16/20 06:45 Glucose 194 mg/dL (74-106) H 03/13/20 03:30 Phosphorus 3.6 mg/dL (2.5-4.9) 03/13/20 03:30 Magnesium 2.1 mg/dL (1.8-2.4) 03/13/20 03:30 Total Bilirubin 1.1 mg/dL (0.2-1.0) H 03/16/20 06:45 AST 42 U/L (15-37) H 03/16/20 06:45 ALT 50 U/L (12-78) 03/16/20 06:45 Alkaline Phosphatase 125 U/L (45-117) H 03/16/20 06:45 Troponin I 0.13 ng/mL (0.0-0.045) H 03/13/20 03:30 Home Medications: Clopidogrel Bisulfate [Plavix*] 1 tab PO DAILY 03/12/20 Fesoterodine Fumarate [Toviaz] 8 mg PO DAILY 03/12/20 Gabapentin 1 tab PO BEDTIME 03/12/20 Multivit-Min/FA/Lycopen/Lutein [Centrum Silver Tablet] 1 tab PO DAILY 03/12/20 Perphenazine [Trilafon] 4 mg PO BEDTIME 03/12/20 Rosuvastatin Calcium 5 mg PO BEDTIME 03/12/20 Sulfamethoxazole/Trimethoprim [Sulfamethoxazole-Tmp Ss Tablet] 1 tab PO DAILY 03/12/20 Tamsulosin [Flomax] 0.4 mg PO DAILY 03/12/20 Triamterene/Hydrochlorothiazid [Triamterene-Hctz 37.5-25 mg Tb] 1 tab PO DAILY 03/12/20 Ubidecarenone [Co Q-10] 100 mg PO DAILY 03/12/20 Diphenhydramine HCl [Sleep Aid] 50 mg PO BEDTIME 03/13/20 Patient Discharge Instructions: Patient will be transferred to long-term acute facility. Continue current medications and measures. Diet: ADA Activity: Ad angelo Followup: NONE,NONE [Primary Care Provider] - Time spent managing pt's care (in minutes): 55
[2020-03-16 18:28] VITALS: O2SAT 92
[2020-03-16] MEDS: ROSUVASTATIN 10 MG TAB PO SCH (19:44)
[2020-03-16] MEDS: TAMSULOSIN 0.4 MG SR CAP PO SCH (19:46)
[2020-03-16] MEDS: GABAPENTIN 300 MG CAP PO SCH (19:48)
[2020-03-16] MEDS: PERPHENAZINE 4 MG PO SCH (19:51)
[2020-03-16] MEDS ORDERED: INSULIN GLARGINE 100 UNITS/ML SQ SCH (21:00)
[2020-03-26 11:46] VITALS: BP 124/65
== END 2020-03-16 22:23 | DRG 177 ==
LOC: ER 18:56 → ERHOLD 22:54 → 3RD-ICU 03-13 23:40
PROVIDERS: ADMIT Internal Medicine Sleep Medicine; ATTEND Family Medicine
PROC: 5A09557 Assistance with Respiratory Ventilation, Greater than 96 Consecutive Hours, Continuous Positive Airway Pressure (ICD-10-PCS; 2020-03-11)
PROC: XW033E5 Introduction of Remdesivir Anti-infective into Peripheral Vein, Percutaneous Approach, New Technology Group 5 (ICD-10-PCS; principal; 2020-03-12)
DX: U07.1 COVID-19 (principal); J12.89 Other viral pneumonia; J96.01 Acute respiratory failure with hypoxia; I10 Essential (primary) hypertension; E78.5 Hyperlipidemia, unspecified; E11.65 Type 2 diabetes mellitus with hyperglycemia; F79 Unspecified intellectual disabilities; H91.90 Unspecified hearing loss, unspecified ear; Z79.02 Long term (current) use of antithrombotics/antiplatelets; Z79.899 Other long term (current) drug therapy; Z86.73 Personal history of transient ischemic attack (TIA), and cerebral infarction without residual deficits; Z53.1 Procedure and treatment not carried out because of patient's decision for reasons of belief and group pressure; Z66 Do not resuscitate
CPT/HCPCS: 36415; 71045; 74018; 80048; 80053; 80076; 82550; 82565; 82728; 82805; 82947; 83036; 83605; 83735; 83880; 84100; 84145; 84484; 85025; 85610; 85730; 86140; 87040; 87070; 87081; 87804; 93005; 94002; 94003; 94660; 94760; 96365; 96375; 99285; J0456; J1160; J1815; J2920; J2930; J3486; J7030; J7050; U0003